=== PATIENT | female | born 1995 | race African-American/Black ===

== ENCOUNTER 2019-12-07 21:13 | Emergency (ER) | payer BC, OTHER ==
--- NOTE | 2019-12-07 21:58 | RAD ---
Exam: Chest one view HISTORY:Lightheadedness. Syncopal event. COVID positive patient. Comparison: None FINDINGS: Cardiac silhouette: Normal Aorta: Unremarkable Pulmonary vessels: Normal Costophrenic angles: Clear LUNGS: No masses or consolidation. Pneumothorax: None Osseous abnormalities: None IMPRESSION: No acute cardiopulmonary process.
[2019-12-08 16:28] LABS: SARS-CoV-2 MS2 Positive; SARS-CoV-2 N Gene Negative; SARS-CoV-2 S Gene Negative; SARS-CoV-2 by NAA Not Detected (NotDetected); SARS-CoV-2 orf1ab Negative
== END 2019-12-07 22:50 | disposition home or self-care (01) ==
LOC: ERS 21:13
DX: J06.9 Acute upper respiratory infection, unspecified (principal); Z20.828 Contact with and (suspected) exposure to other viral communicable diseases
CPT/HCPCS: 71045; 87635; 93005; U0003

== ENCOUNTER 2020-07-06 19:51 | Emergency (ER) | payer OTHER ==
[2020-07-06 21:19] LABS: Pregnancy Test - Urine (BHCG) Negative (Negative); Pregu Control Background? CLEAR/WHITE (CLR/WHITE); Pregu Control Bar Appear? YES (CONTROL BAR); Specific Gravity 1.019 (1.002-1.036)
[2020-07-06] MEDS ORDERED: Ketorolac Tromethamine 30 MG/ML VIAL ONE (21:31)
== END 2020-07-06 21:45 | disposition home or self-care (01) ==
LOC: ERS 19:51
DX: S46.912A Strain of unspecified muscle, fascia and tendon at shoulder and upper arm level, left arm, initial encounter (principal); X58.XXXA Exposure to other specified factors, initial encounter
CPT/HCPCS: 81025; 96372; 99283; J1885